=== PATIENT | male | born 2000 | race Caucasian/White ===

== ENCOUNTER 2019-10-27 16:18 | Emergency (ER) | payer OTHER ==
--- NOTE | 2019-10-27 16:22 | PDOC ---
Rapid Medical Evaluation Time Seen by Provider: 10/27/19 16:19 Medical Evaluation: Allergies Allergy/AdvReac Type Severity Reaction Status Date / Time No Known Allergies Allergy Verified 01/06/13 15:05 10/27/19 16:19 Healthy 19-year-old male with one week of intermittent right testicular pain. Seen at urgent care with negative UA, unable to obtain ultrasound there. Pertinent physical exam findings: Alert, oriented, no distress. No abdominal tenderness. I have ordered the following: UA, urine GC Ultrasound r/o torsion Patient to proceed to the Main ED for further evaluation. Discharge Disposition - Diagnosis Testicular pain, right - Referrals - Patient Instructions - Post Discharge Activity
[2019-10-27 16:24] VITALS: BP 131/85; PULSE 69; TEMP 97.7; BMI 23.5
[2019-10-27 17:04] LABS: PH,URINE 7.5 (5.0-8.0); URINE APPEARANCE CLEAR; URINE BILIRUBIN NEGATIVE (NEGATIVE); URINE COLOR YELLOW; URINE GLUCOSE (UA) NEGATIVE (NEGATIVE); URINE KETONE NEGATIVE (NEGATIVE); URINE LEUK ESTERASE NEGATIVE (NEGATIVE); URINE NITRITE NEGATIVE (NEGATIVE); URINE PROTEIN NEGATIVE (NEGATIVE); URINE UROBILINOGEN 0.2 mg/dL (0.2-1.0)
--- NOTE | 2019-10-27 17:18 | PDOC ---
History of Present Illness - General Chief Complaint: Pain Stated Complaint: TESTICULAR PAIN Time Seen by Provider: 10/27/19 16:19 History Source: Patient Exam Limitations: No Limitations - History of Present Illness Travel History: No Timing/Duration: reports: constant Quality: reports: moderate Abdominal Pain Onset Location: reports: other (testicular) Pain Radiation: reports: no radiation Activities at Onset: reports: none Aggravating Factors: improves with: Movement Alleviating Factors: improves with: Change in Position Past History - Past Medical History Allergies/Adverse Reactions: Allergies Allergy/AdvReac Type Severity Reaction Status Date / Time No Known Allergies Allergy Verified 10/27/19 16:20 Home Medications: Ambulatory Orders No Home Medications 0 dose .ROUTE UTDICT 01/06/13 COPD: No - Psycho Social/Smoking Cessation Hx Smoking Status: No Smoking History: Never smoked Have you smoked in the past 12 months: No Number of Cigarettes Smoked Daily: 0 Hx Alcohol Use: No Drug/Substance Use Hx: No Review of Systems - Review of Systems Able to Perform ROS?: Yes Is the patient limited Indonesian proficient: No Constitutional: No: Symptoms Reported, See HPI, Chills, Diaphoresis, Fever, Loss of Appetite, Malaise, Night Sweats, Weakness, Weight Stable, Unintentional Wgt. Loss, Unexplained wgt Loss, Other HEENTM: No: Symptoms Reported, See HPI, Eye Pain, Blurred Vision, Tearing, Recent change in vision, Double Vision, Cataracts, Ear Pain, Ocular Prothesis, Ear Discharge, Nose Pain, Nose Congestion, Tinnitus, Nose Bleeding, Hearing Loss , Throat Pain, Throat Swelling, Mouth Pain, Dental Problems, Difficulty Swallowing, Mouth Swelling, Other Respiratory: No: Symptoms reported, See HPI, Cough, Orthopnea, Shortness of Breath, SOB with Exertion, SOB at Rest, Stridor, Wheezing, Productive cough, Hemoptysis, Other Cardiac (ROS): No: Symptoms Reported, See HPI, Chest Pain, Edema, Irregular Heart Rate, Lightheadedness, Palpitations, Syncope, Chest Tightness, Other ABD/GI: No: Symptoms Reported, See HPI, Abdominal Distended, Abd. Pain w/ defecation, Blood Streaked Bowels, Constipated, Diarrhea, Difficulty Swallowing , Nausea, Poor Appetite, Poor Fluid Intake, Rectal Bleeding, Vomiting, Indigestion, Abdominal cramping, Tarry Stools, Other : Yes: Testicular Pain Musculoskeletal: No: Symptoms Reported, See HPI, Back Pain, Gout, Joint Pain, Joint Swelling, Muscle Pain, Muscle Weakness, Neck Pain, Joint Stiffness, Other Integumentary: No: Symptoms Reported, See HPI, Bruising, Change in Color, Change in Hair/Nails, Dryness, Erythema, Flushing, Lesions, Lumps, Pallor, Pruritus, Rash, Sweating, Other Neurological: No: Symptoms reported, See HPI, Headache, Numbness, Paresthesia, Pre-Existing Deficit, Seizure, Tingling, Tremors, Weakness, Unsteady Gait, Ataxia, Dizziness, Other Psychiatric: No: Anxiety, Depression, Frequent Crying, Stressors, Sleep Pattern Change, Emotional Problems, Mood Swings, Change in Appetite, Other Endocrine: No: Symptoms Reported, See HPI, Excessive Sweating, Flushing, Intolerance to Cold, Intolerance to Heat, Increased Hunger, Increased Thirst, Increased Urine, Unexplained Weight Gain, Unexplained Weight Loss, Change in Weight, Other Hematologic/Lymphatic: No: Symptoms Reported, See HPI, Anemia, Blood Clots, Easy Bleeding, Easy Bruising, Bleeding Diathesis, Lymph Node Abnormalities, Swollen Glands, Other *Physical Exam - Vital Signs Last Vital Signs Temp Pulse Resp BP Pulse Ox 97.7 F 69 18 131/85 100 10/27/19 16:21 10/27/19 16:21 10/27/19 16:21 10/27/19 16:21 10/27/19 16:21 - Physical Exam General Appearance: Yes: Nourished, Appropriately Dressed HEENT: positive: Normal ENT Inspection, Normal Voice Neck: positive: Supple Respiratory/Chest: positive: Lungs Clear Cardiovascular: positive: Regular Rhythm, Regular Rate Gastrointestinal/Abdominal: positive: Normal Bowel Sounds, Flat Male Genitalia: positive: testicular tenderness, epididymus tender Musculoskeletal: positive: Normal Inspection Extremity: positive: Normal Inspection, Normal Range of Motion Integumentary: positive: Normal Color, Warm Neurologic: positive: Fully Oriented, Alert ED Treatment Course - ADDITIONAL ORDERS Additional order review: Laboratory Results 10/27/19 16:21 Urine Color Yellow Urine Appearance Clear Urine pH 7.5 Ur Specific Reva 1.021 Urine Protein Negative Urine Glucose (UA) Negative Urine Ketones Negative Urine Blood Negative Urine Nitrite Negative Urine Bilirubin Negative Urine Urobilinogen 0.2 Ur Leukocyte Esterase Negative Medical Decision Making - Medical Decision Making 10/27/19 17:29 no Doppler evidence of testicular torsion A 1 mm right testicular cyst. Correlate with 3-month follow-up sonography Small bilateral hydroceles Small left epididymal head cyst Discharge - Discharge Information Problems reviewed: Yes Clinical Impression/Diagnosis: Epididymal cyst Condition: Stable Disposition: HOME - Admission No - Follow up/Referral Referrals: Pipo Adair MD [Staff Physician] - - Patient Discharge Instructions Patient Printed Discharge Instructions: DI for Testicular Pain Additional Instructions: Your ultrasound showed an epididymal cyst that can be treated with OTC medications like motrin or aleve. Warm compresses can be applied to the area If your symptoms do not improve please followup with a urologist - Post Discharge Activity
== END 2019-10-27 17:24 | disposition home or self-care (01) ==
LOC: JER 16:18
DX: N50.3 Cyst of epididymis (principal); N43.3 Hydrocele, unspecified
CPT/HCPCS: 36415; 76870-TC; 81003; 87086; 87491; 87591; 99282-25

== ENCOUNTER 2021-03-29 12:43 | Emergency (ER) | payer OTHER ==
[2021-03-30 13:18] LABS: SARS-CoV-2 NAA Not Detected (Not Detected)
== END 2021-03-29 13:20 | disposition home or self-care (01) ==
LOC: JVIRT 12:43
DX: Z20.822 Contact with and (suspected) exposure to COVID-19 (principal)
CPT/HCPCS: C9803; G2251-GT; Q3014-GT; U0003; U0005

== ENCOUNTER 2021-11-09 11:35 | Emergency (ER) | payer BC, OTHER ==
[2021-11-09] MEDS ORDERED: DEXAMETHASONE SOD PHOSPHATE 10 MG/1 ML VIAL IM ONE (12:24)
[2021-11-09] MEDS ORDERED: FAMOTIDINE 20 MG TABLET PO ONE (12:24)
[2021-11-09] MEDS ORDERED: FAMOTIDINE 20 MG TABLET ONE (12:26)
[2021-11-09] MEDS ORDERED: DEXAMETHASONE SOD PHOSPHATE 10 MG/1 ML VIAL ONE (12:26)
== END 2021-11-09 12:32 | disposition home or self-care (01) ==
LOC: JERFT 11:35
DX: R21 Rash and other nonspecific skin eruption (principal)
CPT/HCPCS: 99281-25; J1100